=== PATIENT | female | born 1960 | race Caucasian/White ===

== ENCOUNTER 2023-11-14 15:03 | Outpatient (RCR) | payer SELFPAY ==
--- NOTE | 2023-11-14 15:17 | PC.NURSE ---
1450: Pt. to [facility] amb. for straight cath. Procedure explained, questions addressed. Using sterile technique, pt. straight cath'd for mod amount clear, yellow urine. Tolerated without c/o. Mandy care provided. 1505: Pt. d/c'd amb. to home.
[2023-11-14 15:23] LABS: Bilirubin Urine NEGATIVE (NEGATIVE); Blood Urine TRACE-I (NEGATIVE); Clarity Urine CLEAR (CLEAR); Color Urine LT. YELLOW (YELLOW); Glucose Urine UA NEGATIVE (NEGATIVE); Ketones Urine NEGATIVE (NEGATIVE); Leukocyte Esterase Urine NEGATIVE (NEGATIVE); Nitrite Urine NEGATIVE (NEGATIVE); Protein Urine NEGATIVE (NEG/TRACE); Specific Gravity Urine >=1.030 (1.005-1.025); Urobilinogen Urine 0.2 EU/dL (0.2-1.0)
[2023-11-14 15:30] LABS: Urine Microscopic Indicated YES
[2023-11-14 15:31] LABS: Bacteria Urine TRACE #/HPF (NONE SEEN); Mucus Urine MODERATE (NONE SEEN); RBC Urine 0-2 #/HPF (0-2); Squamous Epithelial Cell Urine FEW #/LPF (NONE/RARE); WBC Urine NONE SEEN #/HPF (NONE SEEN)
[2023-11-14 15:32] LABS: Urine Culture Indicated NO
== END 2023-12-09 23:59 | disposition home or self-care (01) ==
LOC: INF 15:03
PROVIDERS: PCP Family Medicine; Visit Provider Personal Emergency Response Attendant
DX: N30.01 Acute cystitis with hematuria (principal)
CPT/HCPCS: 51701; 81001